=== PATIENT | male | born 1950 | race Caucasian/White ===

== ENCOUNTER → 2020-12-22 | Day surgery (SDC) | payer MEDICARE ==
[~2020-12-22] VITALS: Ht 180.3 cm; Wt 112.9 kg
[~2020-12-22] MED LIST: BREO ELLIPTA 11 EACH INH; COZAAR50 MG PO; LIPITOR20 MG PO; SYNTHROID125 MCG PO; TURMERIC PO; VENTOLIN HFA IN18 GM INH; VITAMIN B12 SL; VITAMIN C PO; VITAMIN D3 PO
== END | disposition home or self-care (01) ==
LOC: FAS 08:58
DX: Z12.11 Encounter for screening for malignant neoplasm of colon (principal); D12.2 Benign neoplasm of ascending colon; D12.3 Benign neoplasm of transverse colon; D12.5 Benign neoplasm of sigmoid colon; K57.30 Diverticulosis of large intestine without perforation or abscess without bleeding; K64.8 Other hemorrhoids; Q27.33 Arteriovenous malformation of digestive system vessel; I10 Essential (primary) hypertension; E78.5 Hyperlipidemia, unspecified; E03.9 Hypothyroidism, unspecified; Z87.891 Personal history of nicotine dependence; Z80.0 Family history of malignant neoplasm of digestive organs
CPT/HCPCS: 88305; J2250; J2704; J7120

== ENCOUNTER → 2021-06-08 | Day surgery (SDC) | payer MEDICARE ==
[~2021-06-08] VITALS: Ht 180.3 cm; Wt 112.9 kg
[~2021-06-08] MED LIST changes: +APPLE CIDER VI300 MG PO; +CLARITIN10 MG PO; +MAGNESIUM250 M1 PO; +NASONEX NAS120 PUFFS
== END | disposition home or self-care (01) ==
LOC: FAS 07:52
DX: Z12.11 Encounter for screening for malignant neoplasm of colon (principal); Z86.010 Personal history of colon polyps; Z80.0 Family history of malignant neoplasm of digestive organs; D12.5 Benign neoplasm of sigmoid colon; D12.3 Benign neoplasm of transverse colon; I10 Essential (primary) hypertension; E78.00 Pure hypercholesterolemia, unspecified; E03.9 Hypothyroidism, unspecified; K64.8 Other hemorrhoids; Z88.8 Allergy status to other drugs, medicaments and biological substances; Z87.891 Personal history of nicotine dependence; J45.909 Unspecified asthma, uncomplicated; K57.30 Diverticulosis of large intestine without perforation or abscess without bleeding; K55.20 Angiodysplasia of colon without hemorrhage
CPT/HCPCS: J2704; J7120